=== PATIENT | male | born 1980 | race Caucasian/White ===

== ENCOUNTER 2023-08-15 17:29 | Emergency (ER) | payer BC ==
[~2023-08-15] VITALS: Ht 188 cm; Wt 95.5 kg
[2023-08-15] MEDS: TETanus/Pertussis (Acell)/Diphther VAC/PF (Tdap-Adult) 0.5ml syringe IMVAC ONE (18:21)
[2023-08-15] MEDS: ondansetron/PF 4mg/2ml inj IM ONE (18:47)
[2023-08-15] MEDS: LIDOcaine 1% 30ml preserv. free vial IJ STA (18:55)
[2023-08-15] MEDS: ketorolac trometh. 30mg/ml inj. IM ONE (19:08)
[2023-08-15 19:25] VITALS: BP 132/76; PULSE 74; RESP 15; TEMP 98.6; O2SAT 99
== END 2023-08-15 19:29 | disposition home or self-care (01) ==
LOC: ER 17:30
DX: S60.351A Superficial foreign body of right thumb, initial encounter (principal); S60.450A Superficial foreign body of right index finger, initial encounter; I10 Essential (primary) hypertension; X58.XXXA Exposure to other specified factors, initial encounter; Y93.89 Activity, other specified; Y92.89 Other specified places as the place of occurrence of the external cause; Y99.8 Other external cause status
CPT/HCPCS: 90471; 90715; 96372; 99284; J1885; J7030; A6258; A6449